=== PATIENT | male | born 1985 | race Caucasian/White ===

== ENCOUNTER 2016-11-16 17:39 | Inpatient (IN) | payer OTHER ==
[~2016-11-16] VITALS: Ht 180.3 cm; Wt 79.0 kg
[2016-11-16] MEDS ORDERED: ASPIRIN 81 MG CHEW PO STA (17:42)
--- NOTE | 2016-11-16 18:06 | DIAGNOSTIC IMAGING REPORT ---
SINGLE VIEW CHEST CLINICAL HISTORY: Weakness. Change in mental status. FINDINGS: An AP, portable, upright chest radiograph is obtained. No prior studies are available for comparison at the time of dictation. Coils project over the right mid chest. The cardiomediastinal silhouette is unremarkable. There are subtle nodular densities projecting over the right mid chest. No airspace consolidation or pleural effusion is identified. No pneumothorax is seen. The bony thorax is grossly intact. IMPRESSION: 1. No acute cardiopulmonary abnormality. 2. Coils project over the right mid chest. Correlation with the patient's medical/surgical history will be required. Electronically signed by: Casey Bey M.D. 11/16/2016 6:04 PM Dictated Date/Time: 11/16/2016 6:03 PM
[2016-11-16 18:16] LABS: BASO % 0.7 %; BASO ABS # 0.07 K/uL (0-0.2); COMPLETE YES; EOS % 1.3 %; HEMATOCRIT 48.6 % (42-52); IG% 0.3 %; LYMPH % 29.6 %; LYMPH ABS # 2.78 K/uL (1.2-3.4); MEAN CELL VOLUME 82.1 fL (80-100); MEAN CORPUSCULAR HEMOGLOBIN 29.7 pg (25-34); MEAN CORPUSCULAR HGB CONC 36.2 g/dl (32-36); MONO % 6.4 %; NEUT % 61.7 %; PLATELET COUNT 269 K/uL (130-400); RED BLOOD COUNT 5.92 M/uL (4.7-6.1); WHITE BLOOD COUNT 9.39 K/uL (4.8-10.8)
[2016-11-16 18:27] LABS: INR 0.9 (0.9-1.1); PARTIAL THROMBOPLASTIN RATIO 1.1
[2016-11-16 18:30] LABS: ALT/SGPT 26 U/L (12-78); AST/SGOT 14 U/L (15-37); BLOOD UREA NITROGEN 11 mg/dl (7-18); BUN/CREATININE RATIO 8.8 (10-20); CALCIUM 8.7 mg/dl (8.5-10.1); CARBON DIOXIDE 24 mmol/L (21-32); CHLORIDE 112 mmol/L (98-107); GLUCOSE 104 mg/dl (70-99); MAGNESIUM 2.3 mg/dl (1.8-2.4); POTASSIUM 3.5 mmol/L (3.5-5.1); SODIUM 144 mmol/L (136-145)
[2016-11-16 18:41] LABS: ALKALINE PHOSPHATASE 77 U/L (45-117); THYROID STIMULATING HORMONE 0.912 uIu/ml (0.300-4.500)
[2016-11-16 18:54] LABS: URINE APPEARANCE CLEAR (CLEAR); URINE BILIRUBIN NEG (NEG); URINE COLOR YELLOW; URINE NITRITE NEG (NEG); URINE SPECIFIC GRAVITY 1.021 (1.000-1.030); UROBILINOGEN NEG (NEG); ZZUR CULT IF INDIC CLEAN CATCH NO
[2016-11-16 18:58] LABS: MANUAL MICROSCOPIC REQUIRED? NO; REVIEW REQ? NO
--- NOTE | 2016-11-16 19:24 | EMERGENCY ROOM VISIT NOTE ---
History Report prepared by Belinda: Lisa Krishnamurthy Under the Supervision of: Dr. Ramiro Bernstein D.O. First contact with patient: 17:42 Chief Complaint: STROKE SYMPTOMS Stated Complaint: MINI ACUTE STROKE,NUMBNESS,MIGRAINE History of Present Illness The patient is a 31 year old male who presents to the Emergency Room with complaints of persistent stroke-like symptoms that started 2 months ago. The patient states that he experienced left-sided numbness several months ago along with left hand weakness. He states that the symptoms resolved on their own after 1-2 hours with the exception of numbness in his left thumb. The patient contacted his PCP for his symptoms and they setup any appointment with Dr. Gonzalez - Neurology. Dr. Gonzalez ordered an outpatient MRI, which the patient had done earlier today. The MRI revealed acute infarcts so Dr. Gonzalez referred him into the ED for further evaluation and inpatient work-up. Source of History: patient Onset: 2 months ago Position: other (left side) Quality: other (stroke-like symptoms) Timing: other (persistent) Associated Symptoms: + weakness (left hand, resolved), + numbness (left- sided, left thumb) Review of Systems See HPI for pertinent positives & negatives. A total of 10 systems reviewed and were otherwise negative. Past Medical & Surgical Medical Problems: (1) Migraines Surgical Problems: (1) History of appendectomy (2) History of lung surgery Family History FH: cancer FH: diabetes mellitus FH: heart disease FH: hypertension FH: lung disease Social History Smoking Status: Former Smoker Alcohol Use: none Marital Status: single Housing Status: lives with family, lives with significant other Occupation Status: employed Current/Historical Medications No Active Prescriptions or Reported Meds Allergies Coded Allergies: Penicillins (Verified Allergy, Unknown, 04/30/16) Physical Exam Vital Signs Date Time Temp Pulse Resp B/P (MAP) Pulse Ox O2 Delivery O2 Flow Rate FiO2 11/16/16 19:24 64 20 125/83 91 Room Air 11/16/16 18:24 67 11/16/16 17:40 36.6 69 18 149/105 90 Room Air Physical Exam VITAL SIGNS: were reviewed as above. GENERAL:Non-toxic in appearance. SKIN: Warm dry and pink. HEAD: Normocephalic and atraumatic. OROPHARYNX: Is clear and moist NECK: Supple without lymphadenopathy or meningismus. LUNGS: clear. HEART: Regular rate and rhythm. ABDOMEN: Soft and nontender. EXTREMITIES: Warm and well perfused. NEUROLOGICALLY: Awake alert and oriented without focal deficit. Cranial nerves 2 -12 are intact. There is no pronator drift. Cerebellar testing is within normal limits. There is no nystagmus. There is no facial droop. Speech is clear. Vision is grossly normal. MUSCULOSKELETAL: Good muscle tone. No evidence of trauma. Medical Decision & Procedures ER Provider Diagnostic Interpretation: Radiology results as stated below per my review and radiologist interpretation: SINGLE VIEW CHEST FINDINGS: An AP, portable, upright chest radiograph is obtained. No prior studies are available for comparison at the time of dictation. Coils project over the right mid chest. The cardiomediastinal silhouette is unremarkable. There are subtle nodular densities projecting over the right mid chest. No airspace consolidation or pleural effusion is identified. No pneumothorax is seen. The bony thorax is grossly intact. IMPRESSION: 1. No acute cardiopulmonary abnormality. 2. Coils project over the right mid chest. Correlation with the patient's medical/surgical history will be required. Electronically signed by: Casey Bey M.D. 11/16/2016 6:04 PM Dictated Date/Time: 11/16/2016 6:03 PM Laboratory Results 11/16/16 18:05 Red Blood Count 5.92, Mean Corpuscular Volume 82.1, Mean Corpuscular Hemoglobin 29.7, Mean Corpuscular Hemoglobin Concent 36.2, Mean Platelet Volume 10.0, Neutrophils (%) (Auto) 61.7, Lymphocytes (%) (Auto) 29.6, Monocytes (%) (Auto) 6.4, Eosinophils (%) (Auto) 1.3, Basophils (%) (Auto) 0.7, Neutrophils # (Auto) 5.79, Lymphocytes # (Auto) 2.78, Monocytes # (Auto) 0.60, Eosinophils # (Auto) 0.12, Basophils # (Auto) 0.07 11/16/16 18:05 Test 11/16/16 18:05 11/16/16 18:40 White Blood Count 9.39 K/uL (4.8-10.8) Red Blood Count 5.92 M/uL (4.7-6.1) Hemoglobin 17.6 g/dL (14.0-18.0) Hematocrit 48.6 % (42-52) Mean Corpuscular Volume 82.1 fL (80-100) Mean Corpuscular Hemoglobin 29.7 pg (25-34) Mean Corpuscular Hemoglobin Concent 36.2 g/dl (32-36) Platelet Count 269 K/uL (130-400) Mean Platelet Volume 10.0 fL (7.4-10.4) Neutrophils (%) (Auto) 61.7 % Lymphocytes (%) (Auto) 29.6 % Monocytes (%) (Auto) 6.4 % Eosinophils (%) (Auto) 1.3 % Basophils (%) (Auto) 0.7 % Neutrophils # (Auto) 5.79 K/uL (1.4-6.5) Lymphocytes # (Auto) 2.78 K/uL (1.2-3.4) Monocytes # (Auto) 0.60 K/uL (0.11-0.59) Eosinophils # (Auto) 0.12 K/uL (0-0.5) Basophils # (Auto) 0.07 K/uL (0-0.2) RDW Standard Deviation 39.2 fL (36.4-46.3) RDW Coefficient of Variation 13.1 % (11.5-14.5) Immature Granulocyte % (Auto) 0.3 % Immature Granulocyte # (Auto) 0.03 K/uL (0.00-0.02) Prothrombin Time 10.0 SECONDS (9.0-12.0) Prothromb Time International Ratio 0.9 (0.9-1.1) Activated Partial Thromboplast Time 27.7 SECONDS (21.0-31.0) Partial Thromboplastin Ratio 1.1 Anion Gap 8.0 mmol/L (3-11) Est Creatinine Clear Calc Drug Dose 86.8 ml/min Estimated GFR () 83.7 Estimated GFR (Non- 72.2 BUN/Creatinine Ratio 8.8 (10-20) Calcium Level 8.7 mg/dl (8.5-10.1) Magnesium Level 2.3 mg/dl (1.8-2.4) Total Bilirubin 0.6 mg/dl (0.2-1) Direct Bilirubin 0.2 mg/dl (0-0.2) Aspartate Amino Transf (AST/SGOT) 14 U/L (15-37) Alanine Aminotransferase (ALT/SGPT) 26 U/L (12-78) Alkaline Phosphatase 77 U/L (45-117) Total Creatine Kinase 140 U/L (39-308) Creatine Kinase MB 1.4 ng/ml (0.5-3.6) Creatine Kinase MB Ratio 1.0 (0-3.0) Troponin I < 0.015 ng/ml (0-0.045) Total Protein 7.4 gm/dl (6.4-8.2) Albumin 4.2 gm/dl (3.4-5.0) Thyroid Stimulating Hormone (TSH) 0.912 uIu/ml (0.300-4.500) Urine Color YELLOW Urine Appearance CLEAR (CLEAR) Urine pH 7.0 (4.5-7.5) Urine Specific [place] 1.021 (1.000-1.030) Urine Protein NEG (NEG) Urine Glucose (UA) NEG (NEG) Urine Ketones NEG (NEG) Urine Occult Blood NEG (NEG) Urine Nitrite NEG (NEG) Urine Bilirubin NEG (NEG) Urine Urobilinogen NEG (NEG) Urine Leukocyte Esterase NEG (NEG) Urine WBC (Auto) 0 /hpf (0-5) Urine RBC (Auto) 0-4 /hpf (0-4) Urine Hyaline Casts (Auto) 0 /lpf (0-5) Urine Epithelial Cells (Auto) 5-10 /lpf (0-5) Urine Bacteria (Auto) NEG (NEG) Laboratory results as stated above per my review. Medications Administered Medications (Trade) Dose Ordered Sig/Ruddy Route Start Time Stop Time Status Last Admin Dose Admin Aspirin (Aspirin Chew) 81 mg NOW STAT PO 11/16/16 17:42 11/16/16 17:44 DC 11/16/16 18:05 81 MG ECG Indication: weakness Rate (beats per minute): 75 Rhythm: normal sinus Findings: no acute ischemic change, no ectopy ED Course 1741: Ordered Aspirin 81 mg PO 1747: Previous medical records were reviewed. The patient was evaluated in room C7. A complete history and physical examination was performed. 1917: Discussed the patient's case with Dr. Erika Adams. The patient will be evaluated for further treatment and disposition. 1924: On reevaluation, the patient is resting comfortably. I discussed the results and findings with him. He verbalized agreement of the treatment plan. The patient will be evaluated for further management and care. Medical Decision Differential includes acute coronary syndrome, myocardial infarction, CVA, TIA, anemia, infection, pneumonia, UTI, pyelonephritis, poor nutrition, dehydration, electrolyte disturbance,hypoglycemia. Medication Reconciliation: I attest that I have personally reviewed the patient' s current medication list. Blood pressure Screening: Patient was found to have an elevated blood pressure and was referred to their primary doctor for recheck and further treatment. Medication Reconciliation: I attest that I have personally reviewed the patient' s current medication list. Blood pressure Screening: Patient was found to have an elevated blood pressure and was referred to their primary doctor for recheck and further treatment. Consults Time Called: 1912 Consulting Physician: Dr. Erika Adams Returned Call: 1917 Discussed the patient's case with Dr. Erika Adams. The patient will be evaluated for further treatment and disposition. Impression Primary Impression: Stroke Scribe Attestation The scribe's documentation has been prepared under my direction and personally reviewed by me in its entirety. I confirm that the note above accurately reflects all work, treatment, procedures, and medical decision making performed by me. Departure Information Dispostion Being Evaluated By Hospitalist Prescriptions No Active Prescriptions or Reported Meds Referrals No Doctor, Assigned (PCP) Patient Instructions My [facility]
[2016-11-16] MEDS ORDERED: POTASSIUM CHLORIDE 10 MEQ TABCR PO STA (19:29)
[2016-11-16] MEDS ORDERED: PHARMACIST DISCHARGE MED REC CONSULT PRN (19:45)
[2016-11-16] MEDS ORDERED: NITROGLYCERIN 0.4 MG SL PER TAB CHARGE SL PRN (19:45)
[2016-11-16] MEDS ORDERED: ACETAMINOPHEN 325 MG TAB PO PRN (19:45)
[2016-11-16] MEDS ORDERED: SODIUM CHLOR 0.45% + 20MEQ KCL 1,000 ML IV ONE (20:30)
[2016-11-16 20:57] VITALS: BP 150/88; PULSE 69; TEMP 36.7; O2SAT 91; Ht 180.3 cm; Wt 79.0 kg
[2016-11-16] MEDS ORDERED: ENOXAPARIN 40 MG/0.4 ML SYR SC SCH (21:00)
[2016-11-16] MEDS ORDERED: MoRPHine SULFATE 4 MG/ML 1 ML CARP\\VIAL IV PRN (21:30)
[2016-11-16] MEDS ORDERED: TRAMADOL HCL 50 MG TAB PO PRN (21:30)
[2016-11-16] MEDS ORDERED: ONDANSETRON INJ 2 MG/ML 2 ML VIAL IV PRN (21:30)
[2016-11-16] MEDS ORDERED: LORAZEPAM 2 MG/ML 1 ML VIAL IV PRN (21:30)
[2016-11-17] VITALS (8 sets, daily range): BP systolic 120–137; BP diastolic 78–90; PULSE 57–84; TEMP 36.4–37; O2SAT 89–94
--- NOTE | 2016-11-17 00:45 | HISTORY & PHYSICAL EXAMINATION ---
DATE OF ADMISSION: 11/16/2016 PRIMARY CARE PHYSICIAN: None. CHIEF COMPLAINT: Abnormal MRI. HISTORY OF PRESENT ILLNESS: History obtained from patient, family, and records. 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 past tobacco abuse. About 2 months ago, patient had left-sided numbness which improved over the next few weeks, residual numbness in left thumb. Migraine attacks, the last month, more frequent, 3-4 times a week, starts with an aura, Patient was seen by [facility] Neurology office about 2 weeks ago. Impression was migraine. MRI combo study requested. Outpatient MRI done today showed a punctate restricted diffusion at the left anterior body of the corpus callosum with minimal associated T2 signal intensity, question coronal T2-weighted images in the region, 3 additional punctate foci of DWI hyperintensity without definite restricted diffusion in bilateral parietal obese, few scattered punctate foci, T2 hyperintensity within the subcortical and deep white matter, bilateral anterior frontal lobes. chronic ischemic changes, small old lacunar infarcts, bilateral cerebral hemisphere, right greater than left. Consider followup MRA. Findings communicated to neurologist publications writer. Patient was sent to the Emergency Room. Given aspirin in the ER. MEDICAL HISTORY: As above. SURGICAL HISTORY: Pulmonary vein procedure during childhood, appendectomy. HOME MEDICATIONS: Include vitamin B2, magnesium and diazepam. ALLERGIES: PENICILLIN. FAMILY HISTORY: heart disease, diabetes, strokes, and hemochromatosis ("family condition that makes people at risk for strokes" as per family). PERSONAL AND SOCIAL HISTORY: Past tobacco abuse. No chronic intake. 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. REVIEW OF SYSTEMS: As per HPI, all other ROS negative. PHYSICAL EXAMINATION: VITAL SIGNS: Blood pressure was noted to be 130/80, pulse 62, respiratory rate 18, O2 sats 98% on room air. GENERAL: Noted to be slightly anxious, no respiratory distress, eating. SKIN: Normal color. HEENT: [place] palpebral conjunctivae. Dry mucosa. NECK: No JVD. Supple. CHEST: Clear to auscultation. HEART: Regular rate and rhythm. ABDOMEN: Soft. EXTREMITIES: No edema, no tenderness NEUROLOGIC: No gross focality. LABORATORY DATA: Hemoglobin was noted to be 17.6, hematocrit 48, white cell count is 9, platelets 269. Sodium 140, potassium 3.5, chloride 110, CO2 of 27, BUN 20, crea 1.3, glucose 100. IMAGING DATA: Chest x-ray no acute cardiopulmonary abnormalities, pulmonary coil projecting in the right mid chest. EKG as per my interpretation, normal sinus rhythm, no ischemia. ASSESSMENT: 1. Subacute cerebrovascular accident old CVA on MRI ro hypercoagulability, family history of hereditary hemochromatosis ro embolic phenomenon 2. hx migraine. 3. congenital pulmonary vessel anomaly sp surgery 4. past tobacco abuse PLAN: PCU, neuro checks tele monitoring ASA for now for secondary stroke prevention. Workup outlined by the neurologist (Dr. Gonzalez) as follows: MRA of the head and neck. MRI of cervical spine to rule out the demyelination plaques (some suggestion from outpx MRI) Hypercoag workup. DVT prophylaxis with Lovenox subQ. Full code. ADDENDUM : Px/family later clarified familial condition associated w/ strokes they were referring to was "HHT" (hereditary hemorrhagic telangiectasia) - not hereditary hemochromatosis. MTDD
[2016-11-17 06:48] LABS: BASO % 0.9 %; BASO ABS # 0.07 K/uL (0-0.2); COMPLETE YES; EOS % 1.4 %; HEMATOCRIT 50.2 % (42-52); IG% 0.2 %; LYMPH % 30.7 %; LYMPH ABS # 2.49 K/uL (1.2-3.4); MEAN CELL VOLUME 83.8 fL (80-100); MEAN CORPUSCULAR HEMOGLOBIN 29.5 pg (25-34); MEAN CORPUSCULAR HGB CONC 35.3 g/dl (32-36); MONO % 8.6 %; NEUT % 58.2 %; PLATELET COUNT 256 K/uL (130-400); RED BLOOD COUNT 5.99 M/uL (4.7-6.1); WHITE BLOOD COUNT 8.11 K/uL (4.8-10.8)
[2016-11-17 07:28] LABS: CHOLESTEROL/HDL RATIO 3.4; FERRITIN 62.2 ng/ml (8.0-388.0)
[2016-11-17] MEDS ORDERED: ASPIRIN 81 MG ECTAB PO SCH (09:00)
[2016-11-17] MEDS ORDERED: SODIUM CHLORIDE 0.45% 1000ML 1,000 ML IV SCH (12:30)
--- NOTE | 2016-11-17 12:58 | Pulmonary Consultation ---
History General Date of Service: Nov 17, 2016. Stated Complaint: Stroke HPI The patient is a 31 year old male who presents to [facility] with complaints of Stroke. The patient's primary care provider is No Doctor, Assigned. 31 YEAR OLD MAN admitted for left sided weakness and numbness. Has always had migraines as a child His oxygen levels used to run low and at age 8, had coil embolization done to his lungs and after that did not have any problems He had another minor stroke when he was age 11: left hand felt numb even then but he did not go to a doctor Used to have nose bleeds as a child but now they have stopped He denies ever having hemoptysis or blood in stools. Historian: patient Onset: last week Complaint Status: persistent Review of Systems Constitutional: reports: other (headaches) Eyes: denies: no symptoms, as stated in HPI, eye pain, tearing, itching, redness, discharge, double vision, visual changes, blurred vision, photophobia, other ENT: reports: other (nose bleeds as a child), denies: no symptoms, as stated in HPI, ear pain, ear discharge, loss of hearing, tinnitus, nasal pain, nasal congestion, rhinorrhea, epistaxis, sore throat, stridor, throat swelling, mouth pain, mouth swelling, dental pain, gum swelling Cardiovascular: denies: no symptoms, as stated in HPI, chest pain, chest pressure, chest tightness, diaphoresis, edema, intermittent claudication, orthopnea, palpitations, syncope, other Respiratory: reports: shortness of breath, cyanosis, SHARMA, hemoptysis (denies hemoptysis in the past), denies: no symptoms, as stated in HPI, cough, orthopnea , stridor, wheezing, sputum production, PND, other Gastrointestinal: denies: no symptoms, as stated in HPI, abdominal pain, constipation, diarrhea, nausea, vomiting, hematemesis, hematochezia, hemorrhoids , anorexia, appetite changes, stool changes, flatulence, belching, food intolerance, jaundice, other Genitourinary - Male: denies: no symptoms, as stated in HPI, dysuria, hematuria , hesitancy, impotence, itching, penile discharge, rash, urinary frequency, urinary incontinence, urinary retention, urinary urgency, other Musculoskeletal: denies: no symptoms, as stated in HPI, arthralgias, neck pain , back pain, joint pain, joint swelling, deformity, myalgias, muscle spasms, other Integumentary: denies: no symptoms, as stated in HPI, rash, redness, warmth, itching, dryness, lesions, lumps, change in color, change in hair/nails, other Neurologic: denies: no symptoms, as stated in HPI, headache, dizziness, general weakness, focal weakness, numbness, tingling, paresthesia, pre-existing deficit, tremors, tics, vertigo, seizure, lethargy, memory loss, other Psychiatric: denies: no symptoms, as stated in HPI, anxiety, depression, suicidal ideation, homicidal ideation, visual hallucinations, auditory hallucinations, mood changes, alcohol abuse, drug abuse, other Endocrine: denies: no symptoms, as stated in HPI, cold intolerance, heat intolerance, hair changes, goiter, polydipsia, polyuria, skin changes, other Hematologic / Lymphatic: denies: no symptoms, as stated in HPI, abnormal clotting, adenopathy, anemia, easy bleeding, easy bruising, gums bleeding, petechiae, other Allergic / Immunologic: denies: no symptoms, as stated in HPI, eczema, environmental allergies, frequent infections, hives, multiple food allergies, seasonal allergies, pet sensitivities, poor healing, prolonged convalescence, other Past Medical History Past Medical History: h/o mignaines TIA h/o HHT Past Surgical History: coil embolization of pulmonary AVM's at age 8 Family History FH: cancer FH: diabetes mellitus FH: heart disease FH: hypertension FH: lung disease positive for HHt Social History Hx Tobacco Use In Past Year?: No Smoking Status: Former Smoker Marital status: single Occupational Status: employed History of MDRO History of MDRO: No Allergies Coded Allergies: Penicillins (Verified Allergy, Unknown, 04/30/16) Current Medications Reported Home Medications Medications Dose Route/Sig Max Daily Dose Days Date Category No Active Prescriptions or Reported Medications Rx Physical Physical Exam Vital Signs: Date Time Temp Pulse Resp B/P (MAP) Pulse Ox O2 Delivery O2 Flow Rate FiO2 11/17/16 11:37 36.7 80 18 125/86 (99) 90 Nasal Cannula 2.0 11/17/16 08:00 93 Nasal Cannula 2.0 11/17/16 07:51 37.0 60 17 137/78 (97) 90 Nasal Cannula 2.0 11/17/16 04:00 Room Air 11/17/16 03:48 36.4 84 18 120/86 (97) 90 Room Air 11/17/16 00:09 36.5 58 18 122/82 (95) 91 Room Air 11/17/16 00:00 Room Air 11/16/16 20:57 36.7 69 18 150/88 91 Room Air 11/16/16 20:35 65 16 147/90 93 11/16/16 19:24 64 20 125/83 91 Room Air 11/16/16 18:24 67 11/16/16 17:40 36.6 69 18 149/105 90 Room Air General Appearance: WELL-APPEARING, NO APPARENT DISTRESS Head: NORMOCEPHALIC, ATRAUMATIC Eyes: PERRLA, NO DISCHARGE, EOMI, SCLERAE NORMAL, CONJUNCTIVAE NORMAL ENT: NORMAL EAR EXAM, NORMAL NASAL EXAM, NORMAL MOUTH EXAM, NORMAL THROAT EXAM , NORMAL DENTAL EXAM Neck: NORMAL RANGE OF MOTION, NO TENDERNESS, TRACHEA MIDLINE, NO STRIDOR, NO THYROMEGALY, NO LYMPHADENOPATHY, NO NUCHAL RIGIDITY Respiratory: BREATH SOUNDS NORMAL, CLEAR TO AUSCULTATION, CLEAR TO PERCUSSION, NO RESPIRATORY DISTRESS Cardiovasular: REGULAR RATE/RHYTHM, NORMAL S1S2, NO M/G/R, NO MURMUR, NO GALLOP , NO RUB, NO JVD, NORMAL PERIPHERAL PULSES Abdomen: NON TENDER, NORMAL BOWEL SOUNDS, NO REBOUND, NO MASSES, NO GUARDING, NO ORGANOMEGALY Back: NORMAL INSPECTION Upper Extremities: NO EDEMA, NO DEFORMITY Neuro: ALERT, ORIENTED x 3, NORMAL MOTOR EXAM Psychiatric: NORMAL AFFECT Diagnostics Labs Results Past 24 Hours Test 11/16/16 18:05 11/16/16 18:40 11/16/16 20:22 11/17/16 06:37 Range/Units White Blood Count 9.39 8.11 4.8-10.8 K/uL Red Blood Count 5.92 5.99 4.7-6.1 M/uL Hemoglobin 17.6 17.7 14.0-18.0 g/dL Hematocrit 48.6 50.2 42-52 % Mean Corpuscular Volume 82.1 83.8 80-100 fL Mean Corpuscular Hemoglobin 29.7 29.5 25-34 pg Mean Corpuscular Hemoglobin Concent 36.2 35.3 32-36 g/dl Platelet Count 269 256 130-400 K/uL Mean Platelet Volume 10.0 10.0 7.4-10.4 fL Neutrophils (%) (Auto) 61.7 58.2 % Lymphocytes (%) (Auto) 29.6 30.7 % Monocytes (%) (Auto) 6.4 8.6 % Eosinophils (%) (Auto) 1.3 1.4 % Basophils (%) (Auto) 0.7 0.9 % Neutrophils # (Auto) 5.79 4.72 1.4-6.5 K/uL Lymphocytes # (Auto) 2.78 2.49 1.2-3.4 K/uL Monocytes # (Auto) 0.60 0.70 0.11-0.59 K/uL Eosinophils # (Auto) 0.12 0.11 0-0.5 K/uL Basophils # (Auto) 0.07 0.07 0-0.2 K/uL RDW Standard Deviation 39.2 40.4 36.4-46.3 fL RDW Coefficient of Variation 13.1 13.4 11.5-14.5 % Immature Granulocyte % (Auto) 0.3 0.2 % Immature Granulocyte # (Auto) 0.03 0.02 0.00-0.02 K/uL Prothrombin Time 10.0 9.0-12.0 SECONDS Prothromb Time International Ratio 0.9 0.9-1.1 Activated Partial Thromboplast Time 27.7 21.0-31.0 SECONDS Partial Thromboplastin Ratio 1.1 Sodium Level 144 136-145 mmol/L Potassium Level 3.5 3.5-5.1 mmol/L Chloride Level 112 98-107 mmol/L Carbon Dioxide Level 24 21-32 mmol/L Anion Gap 8.0 3-11 mmol/L Blood Urea Nitrogen 11 7-18 mg/dl Creatinine 1.30 0.60-1.40 mg/dl Est Creatinine Clear Calc Drug Dose 86.8 ml/min Estimated GFR () 83.7 Estimated GFR (Non- 72.2 BUN/Creatinine Ratio 8.8 10-20 Random Glucose 104 70-99 mg/dl Calcium Level 8.7 8.5-10.1 mg/dl Magnesium Level 2.3 1.8-2.4 mg/dl Total Bilirubin 0.6 0.2-1 mg/dl Direct Bilirubin 0.2 0-0.2 mg/dl Aspartate Amino Transf (AST/SGOT) 14 15-37 U/L Alanine Aminotransferase (ALT/SGPT) 26 12-78 U/L Alkaline Phosphatase 77 45-117 U/L Total Creatine Kinase 140 39-308 U/L Creatine Kinase MB 1.4 0.5-3.6 ng/ml Creatine Kinase MB Ratio 1.0 0-3.0 Troponin I < 0.015 0-0.045 ng/ml Total Protein 7.4 6.4-8.2 gm/dl Albumin 4.2 3.4-5.0 gm/dl Thyroid Stimulating Hormone (TSH) 0.912 0.300-4.500 uIu/ml Urine Color YELLOW Urine Appearance CLEAR CLEAR Urine pH 7.0 4.5-7.5 Urine Specific [place] 1.021 1.000-1.030 Urine Protein NEG NEG Urine Glucose (UA) NEG NEG Urine Ketones NEG NEG Urine Occult Blood NEG NEG Urine Nitrite NEG NEG Urine Bilirubin NEG NEG Urine Urobilinogen NEG NEG Urine Leukocyte Esterase NEG NEG Urine WBC (Auto) 0 0-5 /hpf Urine RBC (Auto) 0-4 0-4 /hpf Urine Hyaline Casts (Auto) 0 0-5 /lpf Urine Epithelial Cells (Auto) 5-10 0-5 /lpf Urine Bacteria (Auto) NEG NEG Iron Level 108 35-175 mcg/dl Total Iron Binding Capacity 330 250-450 mcg/dl Transferrin 258 200-360 mg/dl Transferrin % Saturation 30 20-50 % Ferritin 62.2 8.0-388.0 ng/ml Triglycerides Level 87 0-150 mg/dl Cholesterol Level 130 0-200 mg/dl HDL Cholesterol 38 mg/dl LDL Cholesterol, Calculated 75 mg/dl VLDL Cholesterol, Calculated 17 mg/dl Cholesterol/HDL Ratio 3.4 Impression Assessment and Plan (1) HHT (hereditary hemorrhagic telangiectasia) Assessment & Plan: obtain ECHO to look for Pulmonary hypertension record pulse ox on exertion (2) Stroke Status: Acute Assessment & Plan: TIA due to embolization from the pulmonary AVM's ? obtain CTA chest : if new AVM's are present then will need IR or vascula to perform coil embolization again also obtain echo with bubble study to r/o any intracardiac shunt (3) Elevated serum creatinine gentle hydration especially as will be getting iv contrast for the cta
[2016-11-17] MEDS ORDERED: OPTIRAY 320 IV PRN (13:00)
--- NOTE | 2016-11-17 13:57 | DIAGNOSTIC IMAGING REPORT ---
CT ANGIOGRAM OF THE CHEST CLINICAL HISTORY: Pulmonary AVM. Stroke. COMPARISON STUDY: Chest x-ray dated 11/16/2016. TECHNIQUE: Following the IV administration of 119 cc of Optiray 320, CT angiogram of the chest was performed from the thoracic inlet to the upper abdomen. Images are reviewed in the axial, sagittal, and coronal planes. 3-D MIPS images are created and assessed. IV contrast was administered without complication. CT DOSE: 443.13 mGy.cm FINDINGS: Thyroid: Imaged portions of the thyroid gland are normal in size and attenuation. Thoracic aorta: The thoracic aorta is normal in caliber and demonstrates standard 3-vessel arch anatomy. No dissection is seen. Pulmonary vasculature: The pulmonary trunk is normal in caliber. There are no filling defects identified in the main, lobar, or segmental pulmonary branches to indicate pulmonary embolus. There is a large pulmonary AVM identified at the left lung base on axial image #312. A large pulmonary AVM is seen at the right upper lobe on axial image #103. A small pulmonary AVM is seen in the left lower lobe on image #169, and a pulmonary AVM is seen in the lingula on image #284 second small AVM in the right upper lobe as seen on image #141. Numerous embolization coils are seen in the right lower quadrant pulmonary vessels, likely representing treated AVMs. Heart: The heart is normal in size and configuration, and without pericardial effusion. Lungs and pleural spaces: No airspace consolidation or pleural effusion is identified. The trachea and central airways are clear. See above under pulmonary vasculature for discussion of pulmonary AVMs. Mediastinum: There is no mediastinal lymphadenopathy. Susana: Clear. Axillae: There is no axillary lymphadenopathy. Upper abdomen: Partially visualized upper abdominal viscera is within normal limits. Skeletal structures: No lytic or blastic bony lesions are seen. IMPRESSION: 1. 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 The largest is seen at the left lung base. 2. There are embolization coils within additional AVMs seen in the right lower lung. 3. There is no airspace consolidation or pleural effusion. 4. There is no evidence of pulmonary embolus in the main, lobar, or segmental pulmonary arteries. 5. The thoracic aorta is normal in appearance. Electronically signed by: Casey Bey M.D. 11/17/2016 1:55 PM Dictated Date/Time: 11/17/2016 1:51 PM
--- NOTE | 2016-11-17 14:30 | PROGRESS NOTE ---
DATE: 11/17/2016 REASON FOR CONSULTATION: Possible stroke. HISTORY OF PRESENT ILLNESS: Mr. Underwood is a 31-year-old right-handed male who was admitted as an outpatient. He had seen Destiny Sprague and Dr. Naylor in the office several weeks ago for an episode of protracted numbness in the left arm that had not accompanied migraine. The radiologist called me with the results and there was an acute left pericallosal infarction which of course did not explain his symptoms several weeks ago and evidence of multiple prior small, but cortically based cerebellar infarct as well as some hemispheric infarcts, all small. The pericallosal lesion was nonenhancing. I contacted the patient and sent him into the hospital. He has an interesting history. He has had migraines for many years and saw Dr. Ceron at least in 2001. At that time he had an abnormal CT, I believe there was an abnormality in the right caudate head, but an MRI apparently showed no significant abnormality. He continued to have migraines about once a week and typically they occur which are preceded by scintillating visual phenomenon and sometimes by unilateral perioral numbness lasting less than an hour followed by a global or retroorbital headache with nausea, rare vomiting, none recently; photophobia and phonophobia. He several weeks ago was seated watching TV, the left arm, face and trunk had an intense numbness and there was some associated weakness of the left hand and left leg. He did not get a headache. He went to sleep for several hours and he awakened with residual numbness in the radial aspect of his left thumb which has persisted. He has had the aforementioned headaches, at times he has had sparkling visual phenomenon that lasts for days after headache. He has also had another event where he had numbness in his left arm followed by headache, but the numbness lasted 1-2 weeks. He has had some intermittent double vision without a headache lasting 10-15 minutes in the past. No history of vertigo, no history of optic neuritis, trigeminal neuralgia, Lhermitte's phenomenon, incontinence, imbalance. None of these neurologic events ever occurred with Valsalva maneuver. There has been no chest pain, palpitations, hemoptysis or shortness of breath. The patient had a pulmonary vascular section at age 8. He has had frequent nosebleeds in the past. There is a family history of HHT, his grandmother sounds as if she had an intracranial hemorrhage, may have had an aneurysm and his grandmother also had a gastrectomy and lung surgery, a paternal uncle same side of family and paternal cousin are said to have MS. MEDICAL HISTORY: He has had a skin condition that he and his mother do not recall the name, he has multiple warts and there is a risk for skin cancer. He was as a youngster followed by [facility] but has not seen dermatology. No history of DVT, PE. No history of cancer. Classic migraine since youth. SURGICAL HISTORY: Pulmonary vascular procedure in youth and appendectomy. REVIEW OF SYSTEMS: As above, additionally the patient has had a 10 pound weight loss related to stressors. MEDICATIONS AT HOME: B2, magnesium. He was prescribed Imitrex but did not take it for the headache. REmotely he was on propanolol briefly for migraine which he did not tolerate. ALLERGIES: PENICILLIN. FAMILY HISTORY: In addition to the aforementioned family history of HHT, mother has hyperlipidemia, migraine. Father HHT, PE, diabetes, hyperlipidemia. Brothers with migraine. He has 1 child that is well. MRI as an outpatient as mentioned above. The patient's chest x-ray showed no acute abnormality, nodular densities projecting over the right midchest and coiled project over the right midchest. The patient's EKG sinus rhythm. LABORATORIES: White count, H and H and platelet count are normal. PT 10, PTT 27.7. Chemistry profile, notable for a random glucose of 104. Transaminases normal. TSH normal. Urinalysis notable for 5-10 epithelial cells, immunology, hypercoagulable state workup is pending. PHYSICAL EXAMINATION: The patient is awake and alert, in no distress. There is normal speech and language and his affect is appropriate. There are no carotid bruits. No vertebral bruits. No heart murmurs appreciable. Lungs are clear. No pulmonary bruits are appreciated. Radial pulses are intact. Posterior tibial pulses are intact. The feet are mildly bluish, I do not see any periungual vascular malformations. I do not see any vascular malformations in his fingertips. Pupils are equal, round, reactive to light. No afferent pupillary defect, normal metzger, motility, facial sensation, facial symmetry. Speech and language are normal. Tongue is midline. Face is symmetric. Motor: Full strength, no drift. Normal rapid alternating movements. Symmetric reflexes. Downgoing toes. Ojhgkk-sl-rklr and indr-rl-nbku are normal. Sensation decreased to light touch left radial aspect of his thumb, otherwise normal. Goiilq-la-bser and bgda-zo-fgar normal. Gait and tandem are normal. IMPRESSION: This patient has a history of classic migraines, with some of the migraines he has had relatively protracted neurologic symptoms. His most recent event occurred with some persistent numbness occurred without a headache and is not explained by the MRI of the brain which shows an acute infarction in the left corpus callosum as well as other prior primarily cortically based cerebellar infarctions as well as left parietal. 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 PLAN: 1. MRA has been ordered. May need a CTA to clarify further whether there is any cranial AVMs or aneurysms. 2. Pulmonary consultation regarding screening for pulmonary AVMs, of which I am highly suspicious. 3. Given the patient has had multiple presumed emboli, antiplatelet therapy with aspirin at present, will need to monitor for epistaxis or hemoptysis. 4. Will screen for venous thrombosis in the upper and lower extremities, may need pelvic imaging. 5. Hypercoagulable state workup. 6. Although MS is in the differential and there is "family history" of MS, I am suspicious that family history of multiple sclerosis on the paternal side may be incorrect and it is possible that those members have HHT with emboli. We will follow with you. ELVA
[2016-11-17] MEDS ORDERED: PERFLUTREN LIPID MICROSPHERE (DEFINITY) IV ONE (16:17)
--- NOTE | 2016-11-17 17:16 | Discharge Instructions ---
Discharge Instructions Date of Service Nov 17, 2016. Admission Reason for Admission: Stroke Discharge Discharge Diagnosis / Problem: HEREDITARY TELAGIECTASIA/ACUTE CVA /PULMONARY AVM Discharge Goals Goal(s): Diagnostic testing Activity Recommendations Activity Limitations: as noted below ( TOLERATED ) . Instructions / Follow-Up Instructions / Follow-Up PATIENT BEING TRANSFERRED TO [facility] FOR IR GUIDED COIL EMBOLIZATION FOR MULTIPLE PULMONARY AVM'S NEUROLOGY EVALUATION FOR ACUTE CVA Current Hospital Diet Patient's current hospital diet: AHA Diet (Heart Healthy) Discharge Diet Recommended Diet: AHA Diet (Heart Healthy) Pending Studies Studies pending at discharge: no Laboratory Results Lipid Panel Test 11/17/16 06:37 Range/Units Triglycerides Level 87 0-150 mg/dl Cholesterol Level 130 0-200 mg/dl HDL Cholesterol 38 mg/dl Cholesterol/HDL Ratio 3.4 LDL Cholesterol, Calculated 75 mg/dl Medical Emergencies . Who to Call and When: Medical Emergencies: If at any time you feel your situation is an emergency, please call 911 immediately. . Non-Emergent Contact Non-Emergency issues call your: Hospital Doctor, Neurologist . . "Provider Documentation" section prepared by Paulina Beltrán. . VTE Core Measure Inpt VTE Proph given/why not?: Jefry Arreola, SCD's
[2016-11-17] MEDS ORDERED: ULT50X PO (17:37)
[2016-11-17] MEDS ORDERED: ASPEC81 PO (17:37)
--- NOTE | 2016-11-17 18:29 | DIAGNOSTIC IMAGING REPORT ---
CERVICAL SPINE MRI WITH AND WITHOUT CONTRAST HISTORY: Stroke. check for demyelinating plaques as per dr ca TECHNIQUE: Multiplanar multisequence MRI of the cervical spine was performed both before and after the use of intravenous contrast. COMPARISON STUDY: None. FINDINGS: No fracture or subluxation. Disc desiccation throughout the majority of the cervical spine. Disc spaces are relatively preserved. Cervical spinal cord is normal in course, caliber, and signal intensity. No abnormal enhancement. Vertebral soft tissues and the C1-C2 interval are intact. There are few tiny old lacunar infarcts seen within the cerebellar hemispheres. C2-C3: No significant central canal or neural foraminal narrowing. C3-C4: Broad-based posterior disc osteophyte complex without significant central canal or left-sided neural foraminal narrowing. Mild right-sided neural foraminal narrowing. C4-C5: No significant central canal or neural foraminal narrowing. C5-C6: Tiny right paracentral focal disc protrusion without significant central canal or neural foraminal narrowing. C6-C7: Small broad-based posterior disc bulge without central canal or neural foraminal narrowing. C7-T1: No significant central canal or neural foraminal narrowing. IMPRESSION: 1. Normal cervical spinal cord. 2. Mild degenerative changes as described above. 3. A few old tiny lacunar infarcts within the cerebellar hemispheres. Electronically signed by: Jay Bueno M.D. 11/17/2016 6:27 PM Dictated Date/Time: 11/17/2016 6:22 PM
[2016-11-17] MEDS ORDERED: GADAVIST IV PRN (18:30)
--- NOTE | 2016-11-17 18:31 | DIAGNOSTIC IMAGING REPORT ---
Brain MRA HISTORY: stroke TECHNIQUE: 3-D [id number] MRA of the brain was performed without contrast. COMPARISON STUDY: None. FINDINGS: Visualized intracranial internal carotid arteries, distal left vertebral artery, and basilar artery are widely patent. There is no significant stenosis, occlusion, or aneurysm seen within the bilateral ACAs, MCAs, or oil well cable tool driller. Distal right vertebral artery is hypoplastic and terminates in the right posterior inferior cerebellar artery. This is considered to be a normal variant. Multiple old lacunar infarcts seen within the cerebellar hemispheres. IMPRESSION: No significant stenosis, occlusion, or aneurysm within the [place] of [place]. Electronically signed by: Jay Bueno M.D. 11/17/2016 6:13 PM Dictated Date/Time: 11/17/2016 6:11 PM
--- NOTE | 2016-11-17 18:33 | DIAGNOSTIC IMAGING REPORT ---
NECK MRA HISTORY: stroke TECHNIQUE: [id number] and gadolinium-enhanced MRA of the neck was performed both before and after the intravenous administration of contrast. All measurements were calculated based on NASCET criteria. COMPARISON STUDY: None. FINDINGS: The aortic arch and proximal great vessels are widely patent. There is no significant stenosis, occlusion, or dissection identified within the bilateral common carotid, internal carotid, or vertebral arteries. Hypoplastic right vertebral artery IMPRESSION: No significant stenosis, occlusion, or dissection identified within the carotid or vertebral arteries. Electronically signed by: Jay Bueno M.D. 11/17/2016 6:32 PM Dictated Date/Time: 11/17/2016 6:30 PM
--- NOTE | 2016-11-17 19:31 | DIAGNOSTIC IMAGING REPORT ---
BILATERAL UPPER AND LOWER EXTREMITY VENOUS DOPPLER HISTORY: stroke, poss pulm avm COMPARISON STUDY: None. FINDINGS: There is normal compressibility, flow, and augmentation within the bilateral upper and lower extremity deep venous systems. IMPRESSION: No DVT within the right or left upper or lower extremity. Electronically signed by: Jay Bueno M.D. 11/17/2016 7:29 PM Dictated Date/Time: 11/17/2016 7:28 PM
--- NOTE | 2016-11-17 19:53 | Discharge Summary ---
Discharge Summary Date of Service Nov 17, 2016. Discharge Summary Admission Date: Nov 16, 2016 at 19:39 Discharge Date: Nov 17, 2016 Discharge Disposition: Acute care facility ([facility] ) Principal Diagnosis: HEREDITARY TELANGIECTASIA/ACUTE CVA /PULMONARY AVM Procedures: CT ANGIOGRAM OF CHEST : MPRESSION: 1. 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 The largest is seen at the left lung base. 2. There are embolization coils within additional AVMs seen in the right lower lung. 3. There is no airspace consolidation or pleural effusion. 4. There is no evidence of pulmonary embolus in the main, lobar, or segmental pulmonary arteries. 5. The thoracic aorta is normal in appearance. DOPPLER ULTRASOUND OF BOTH UPPER AND LOWER EXTREMITY : No evidence of DVT MRI/MRA OF BRAIN : IMPRESSION: No significant stenosis, occlusion, or aneurysm within the [place] of [place]. No significant stenosis, occlusion, or aneurysm of carotid and vertebral arteries MRA OF CERVICAL SPINE: IMPRESSION: 1. Normal cervical spinal cord. 2. Mild degenerative changes as described above. 3. A few old tiny lacunar infarcts within the cerebellar hemispheres. Consultations: NEUROLOGY PULMONOLOGY Pending Studies/Follow-Up: PATIENT BEING TRANSFERRED TO [facility] FOR IR GUIDED COIL EMBOLIZATION FOR MULTIPLE PULMONARY AVM'S NEUROLOGY EVALUATION FOR ACUTE CVA Medication Reconciliation New Medications: Aspirin (Aspirin EC Low Dose) 81 Mg Ectab 81 MG PO QAM for 30 Days Tramadol HCl (Tramadol HCl) 50 Mg Tab 25 MG PO Q6H PRN for Pain for 30 Days, #60 TAB Admission Information HPI (per Admitting provider): DATE OF ADMISSION: 11/16/2016 PRIMARY CARE PHYSICIAN: None. CHIEF COMPLAINT: Abnormal MRI. HISTORY OF PRESENT ILLNESS: History obtained from patient, family, and records. 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 past tobacco abuse. About 2 months ago, patient had left-sided numbness which improved over the next few weeks, residual numbness in left thumb. Migraine attacks, the last month, more frequent, 3-4 times a week, starts with an aura, Patient was seen by [facility] Neurology office about 2 weeks ago. Impression was migraine. MRI combo study requested. Outpatient MRI done today showed a punctate restricted diffusion at the left anterior body of the corpus callosum with minimal associated T2 signal intensity, question coronal T2-weighted images in the region, 3 additional punctate foci of DWI hyperintensity without definite restricted diffusion in bilateral parietal obese, few scattered punctate foci, T2 hyperintensity within the subcortical and deep white matter, bilateral anterior frontal lobes. chronic ischemic changes, small old lacunar infarcts, bilateral cerebral hemisphere, right greater than left. Consider followup MRA. Findings communicated to neurologist backend python developer. Patient was sent to the Emergency Room. Given aspirin in the ER. Physical Exam (per Admitting): REVIEW OF SYSTEMS: As per HPI, all other ROS negative. PHYSICAL EXAMINATION: VITAL SIGNS: Blood pressure was noted to be 130/80, pulse 62, respiratory rate 18, O2 sats 98% on room air. GENERAL: Noted to be slightly anxious, no respiratory distress, eating. SKIN: Normal color. HEENT: [place] palpebral conjunctivae. Dry mucosa. NECK: No JVD. Supple. CHEST: Clear to auscultation. HEART: Regular rate and rhythm. ABDOMEN: Soft. EXTREMITIES: No edema, no tenderness NEUROLOGIC: No gross focality. Hospital Course this is 31 yo Male sent from Neurology office for concern for Acute CVA pt had complain intermittent numbness of left arm and fingers MRI [facility] brain done at [facility] showed : punctate restricted diffusion at the left anterior body of the corpus callosum , 3 additional punctate foci bilateral parietal lobe , T2 hyperintensity within the subcortical and deep white matter, bilateral anterior frontal lobes.chronic ischemic changes, small old lacunar infarcts, bilateral cerebral hemisphere, right greater than left. -Acute CVA with multiple foci suggestive of embolic phenomenon pt was directed to [facility] ER -Neurology was involved, concern for possible HHT ( Hereditary hemorrhagic Telangiectasis ) -pt had pulmonary AVM embolization done at age 8 has multiple family members with similar symptoms MRI /MRA of brain -was negative of intracranial AVM , Aneurysms MRI of Cervical spine -shows old lacunar infract in cerebellum Upper and lower ext Doppler was negative for DVT Pulmonology eval requested CTA angiogram of chest ordered -shows multiple AVM's in bilat lung lobe with evidence of coil embolization on rt lower lobe Discussed with environmental remediation engineer neurology and Pulmonology will need IR guided embolization of the pulmonary AVM' given [facility] does not have IR service , also pt be [facility] -with Neurology , IR , pulmonology support will need detail cardiac work up as well D/w Pt and his mother Lung AVM embolization in his childhood was done in [facility] agreeable for the transfer pt is hemodynamically stable no overt neurological deficit stable to be transferred via [facility] [place] [facility] [place] accepting physician Dr Tang Total time spent on discharge = 40 mins This includes examination of the patient, discharge planning, medication reconciliation, and communication with other providers. Discharge Instructions Discharge Instructions Date of Service Nov 17, 2016. Admission Reason for Admission: Stroke Discharge Discharge Diagnosis / Problem: HEREDITARY TELANGIECTASIA/ACUTE CVA /PULMONARY AVM Discharge Goals Goal(s): Diagnostic testing Activity Recommendations Activity Limitations: as noted below ( TOLERATED ) . Instructions / Follow-Up Instructions / Follow-Up PATIENT BEING TRANSFERRED TO [facility] FOR IR GUIDED COIL EMBOLIZATION FOR MULTIPLE PULMONARY AVM'S NEUROLOGY EVALUATION FOR ACUTE CVA Current Hospital Diet Patient's current hospital diet: AHA Diet (Heart Healthy) Discharge Diet Recommended Diet: AHA Diet (Heart Healthy) Pending Studies Studies pending at discharge: no Laboratory Results Lipid Panel Test 11/17/16 06:37 Range/Units Triglycerides Level 87 0-150 mg/dl Cholesterol Level 130 0-200 mg/dl HDL Cholesterol 38 mg/dl Cholesterol/HDL Ratio 3.4 LDL Cholesterol, Calculated 75 mg/dl Medical Emergencies . Who to Call and When: Medical Emergencies: If at any time you feel your situation is an emergency, please call 911 immediately. . Non-Emergent Contact Non-Emergency issues call your: Hospital Doctor, Neurologist . . "Provider Documentation" section prepared by Paulina Beltrán. . VTE Core Measure Inpt VTE Proph given/why not?: Jefry Arreola, SCD's Additional Copies To Destiny Gonzalez M.D.
[2016-11-18 00:27] VITALS: BP 115/70; PULSE 62; TEMP 36.4; O2SAT 93
--- NOTE | 2016-11-18 08:45 | ECHOCARDIOGRAM REPORT ---
*NOTICE TO RECEIVING REPUBLICAN AGENCY This information is strictly Confidential and protected under [place] law. [place] law prohibits you from making any further disclosure of this information unless further disclosure is expressly permitted by the written consent of the person to whom it pertains or is authorized by law. A general authorization for the release of medical or other information is not sufficient for this purpose. Hospital accepts no responsibility if the information is made available to any other person, INCLUDING THE PATIENT. Interpretation Summary * Name: ADAM WING Study Date: 11/17/2016 03:36 PM BP: 120/86 mmHg * Patient Location: C.2T\S\E217\S\1 HR: 57 * : 1985 (M/d/yyyy) Gender: Male Height: 71 in * Age: 31 yrs Ethnicity: CA Weight: 171 lb * Ordering Physician: Philippe James * Referring Physician: Self, Referred * Performed By: Philippe Fields RDCS * * Reason For Study: Stroke * BSA: 2.0 m2 * -- Conclusions -- * The presence of an ASD or PFO cannot be excuded on this study. * Agitated saline contrast administaiton demonstrates significant right to left shunt. * Patient has history of pulmonary ateriovenous malformations which could explain the findings but intercardiac shunt from an interatrial communication cannot be excluded. * The suspicion for interatrial communication is high, consider CLAUDE. * The left ventricle is normal in size. * The left ventricular wall motion is normal. * The LV Ejection Fraction = 55-60%. * The right ventricle is normal in size and function. * The left atrial size is normal. * Right atrial size is normal. * There is no evidence of pulmonary hypertension. Procedure Details * A complete two-dimensional transthoracic echocardiogram was performed (2D, M-mode, Doppler and color flow Doppler). * The study was technically difficult. * The study was technically difficult, but visualization was adequate with the administration of Definity ultrasound contrast. * A contrast injection of Definity was performed to improve assessment of LV function. * Contrast was injected into an intravenous site in the left arm. * One vial of Definity ultrasound contrast was diluted in normal saline to a total volume of 10 ml. A total of '3' ml of solution was administered during imaging. * Lot # [id number] of Definity utilized for procedure. * Expiration date [id number]. * The attending nurse who injected the contrast agent was MAURICIO Huntley. Left Ventricle * The left ventricle is normal in size. * There is normal left ventricular wall thickness. * Left ventricular systolic function is normal. * Ejection Fraction = 55-60%. * The left ventricular wall motion is normal. Right Ventricle * The right ventricle is normal in size and function. * The right ventricular systolic function is normal as assessed by tricuspid annular plane systolic excursion (TAPSE) (normal >1.5 cm). Atria * The left atrial size is normal. * Right atrial size is normal. * The presence of an ASD or PFO cannot be excuded on this study. Agitated saline contrast administaiton demonstrates significant right to left shunt. Patient has history of pulmonary ateriovenous malformations which could explain the findings but intercardiac shunt from an interatrial communication cannot be excluded. The suspicion for interatrial communication is high, consider CLAUDE. Mitral Valve * The mitral valve is normal. * There is no mitral valve stenosis. * Significant mitral regurgitation is absent. Tricuspid Valve * The tricuspid valve is normal. * There is no tricuspid stenosis. * Significant tricuspid regurgitation is absent. Aortic Valve * The aortic valve is trileaflet. * Aortic stenosis is absent. * There is no significant aortic regurgitation. Pulmonic Valve * The pulmonary valve is not well seen, but the Doppler examination is normal without significant regurgitation or stenosis. Great Vessels * The aortic root and proximal ascending aorta are normal sized. Pericardium/Pleural * There is no pericardial effusion. Great Vessels * Normal inferior vena cava diameter and respiratory variation suggests normal central venous pressure. * Normal inferior vena cava size and collapsability with sniff indicates a normal right atrial pressure of 3 mmHg Left Ventricular Diastolic Function * The LV diastolic function is normal. MMode 2D Measurements and Calculations IVSd 0.92 cm IVSs 1.3 cm LVIDd 4.7 cm LVIDs 2.8 cm LVPWd 0.91 cm LVPWs 1.5 cm IVS/LVPW 1.0 FS 40.4 % EDV(Teich) 103.8 ml ESV(Teich) 30.0 ml EF(Teich) 71.1 % EDV(cubed) 105.7 ml ESV(cubed) 22.4 ml EF(cubed) 78.8 % % IVS thick 36.4 % % LVPW thick 69.5 % LV mass(C)d 147.3 grams LV mass(C)dI 74.7 grams/m\S\2 LV mass(C)s 129.4 grams LV mass(C)sI 65.6 grams/m\S\2 SV(Teich) 73.8 ml SI(Teich) 37.4 ml/m\S\2 SV(cubed) 83.3 ml SI(cubed) 42.2 ml/m\S\2 EPSS 0.83 cm Ao root diam 3.4 cm Ao root area 9.2 cm\S\2 ACS 2.2 cm LA dimension 3.1 cm asc Aorta Diam 3.3 cm LA/Ao 0.90 LVOT diam 1.9 cm LVOT area 2.9 cm\S\2 LVOT area(traced) 2.8 cm\S\2 LVAd ap4 26.1 cm\S\2 LVLd ap4 7.5 cm EDV(MOD-sp4) 74.0 ml LVAs ap4 14.1 cm\S\2 LVLs ap4 6.0 cm ESV(MOD-sp4) 30.0 ml EF(MOD-sp4) 59.5 % LVAd ap2 29.2 cm\S\2 LVLd ap2 7.7 cm EDV(MOD-sp2) 93.0 ml LVAs ap2 14.6 cm\S\2 LVLs ap2 5.9 cm ESV(MOD-sp2) 32.0 ml EF(MOD-sp2) 65.6 % SV(MOD-sp4) 44.0 ml SI(MOD-sp4) 22.3 ml/m\S\2 SV(MOD-sp2) 61.0 ml SI(MOD-sp2) 30.9 ml/m\S\2 Doppler Measurements and Calculations MV E max zoe 79.0 cm/sec MV A max zoe 39.5 cm/sec MV E/A 2.0 MV dec time 0.18 sec Ao V2 max 113.3 cm/sec Ao max PG 5.1 mmHg Ao max PG (full) 2.7 mmHg MURIEL(V,A) 2.0 cm\S\2 MURIEL(V,D) 2.0 cm\S\2 LV V1 max PG 2.5 mmHg LV V1 max 78.5 cm/sec PA V2 max 92.3 cm/sec PA max PG 3.4 mmHg
[2016-11-21 13:50] LABS: ANTITHROMBINIII ACTIVITY** 137 % activity (80-120); B2 GLYCOPROTEIN IGA <9 SAU (<=20); B2 GLYCOPROTEIN IGG <9 SGU (<=20); B2 GLYCOPROTEIN IGM <9 SMU (<=20); LUPUS ANTICOAGULANT** TC36573X Negative (Negative); PROTEIN C ACTIVITY** TC 1777X 176 % (70-180); PROTEIN S ACT(FUNCT)**1779X 145 % (70-150)
== END 2016-11-18 01:11 | disposition short-term general hospital (02) | DRG 299 ==
LOC: C.EDB 17:39 → C.2T 19:39 → ENRESERV 20:04
PROVIDERS: ADMIT Hospitalist; ATTEND Hospitalist
DX: I78.0 Hereditary hemorrhagic telangiectasia (principal); Q25.72 Congenital pulmonary arteriovenous malformation; F41.9 Anxiety disorder, unspecified; G43.909 Migraine, unspecified, not intractable, without status migrainosus; Z79.899 Other long term (current) drug therapy; Z87.891 Personal history of nicotine dependence; Z90.49 Acquired absence of other specified parts of digestive tract; Z82.49 Family history of ischemic heart disease and other diseases of the circulatory system; Z83.3 Family history of diabetes mellitus; Z88.0 Allergy status to penicillin; Z82.3 Family history of stroke; Z80.9 Family history of malignant neoplasm, unspecified; Z83.6 Family history of other diseases of the respiratory system

== ENCOUNTER 2017-10-05 16:41 | Emergency (ER) | payer OTHER ==
[~2017-10-05] VITALS: Ht 177.8 cm; Wt 78.6 kg
[~2017-10-05 16:41] MED LIST: ASPI-320 PO; ULT50X PO
[2017-10-05 16:45] VITALS: TEMP 36.6; Ht 177.8 cm; Wt 78.6 kg
[2017-10-05] MEDS ORDERED: SODIUM CHLORIDE 0.9% 1000ML 1,000 ML IV STA (17:07)
[2017-10-05] MEDS ORDERED: MoRPHine SULFATE 4 MG/ML 1 ML CARP\\VIAL IV STA ×2 (17:07→19:12)
[2017-10-05] MEDS ORDERED: OPTIRAY 320 IV PRN (17:15)
[2017-10-05 17:24] VITALS: O2SAT 96
[2017-10-05] MEDS ORDERED: RANI150T85 PO (17:30)
[2017-10-05] MEDS ORDERED: MAGN250T8 PO (17:30)
[2017-10-05] MEDS ORDERED: RIBO50TA5 PO (17:30)
--- NOTE | 2017-10-05 17:36 | EMERGENCY ROOM VISIT NOTE ---
ED Visit Note First contact with patient: 16:58 CHIEF COMPLAINT: Left-sided chest pain, shortness of breath HISTORY OF PRESENTING ILLNESS: This is a 32-year-old male with past medical history significant for hereditary neuralgic telangiectasia who presents to the emergency department with complaint of left-sided chest pain that started 2 days ago. The patient states that he had surgery on 09/30 at [facility] in [place] by interventional radiology to have several AVMs embolized. He states that they went through a vein in the right side of his neck to do the procedure and he does not have any surgical incisions. He states initially that he did not have any significant pain after the surgery. He began having a dull aching pain in the left side of his chest 2 days ago, this is been getting progressively worse and today the pain became severe and sharp around 3 PM. He states that the pain has been constant, worse with some movements and with taking a deep breath, unrelieved with Tylenol, currently rates as 11/23. He denies any cough or hemoptysis. He denies any fevers or chills. He denies any dizziness, palpitations, or syncope. He denies any abdominal pain, back pain, nausea or vomiting, diarrhea, urinary symptoms, unusual rash. REVIEW OF SYSTEMS: A complete 10 point review of systems was reviewed with the patient with pertinent positives and negatives as per history of present illness. All else were negative. PAST MEDICAL HISTORY: HHT with multiple pulmonary AVMs, stroke, migraines, GERD SOCIAL HISTORY: Lives at home. He denies tobacco use. ALLERGIES: Reviewed in chart. PHYSICAL EXAM: CONSTITUTIONAL: Pleasant and cooperative. No acute distress, but appears uncomfortable and in significant pain. Mildly dehydrated, but otherwise well appearing and well nourished. HEENT: Normocephalic, atraumatic. Pupils equal, round and reactive to light, EOMI. TMs normal. Pharynx normal. Tacky mucous membranes. NECK: Supple, full active range of motion without discomfort. No cervical adenopathy. No ecchymosis or swelling of the right side of the neck at the surgical site. RESPIRATORY: Clear to auscultation bilaterally with no wheezing, crackles, rhonchi or stridor. Equal expansion bilaterally. CHEST WALL: Patient is actively guarding his left side. Tenderness to palpation of the left anterior and lateral chest wall. No crepitus, swelling, or ecchymosis noted. CARDIOVASCULAR: Regular rate and rhythm with no murmurs, rubs or gallops. Normal peripheral perfusion. No edema. GASTROINTESTINAL: Soft, nontender, nondistended. No rebound tenderness or guarding. No palpable masses or HSM. Bowel sounds present in all quadrants. No CVA tenderness. MUSCULOSKELETAL: Full range of motion of all joints without discomfort. INTEGUMENTARY: No rash or other significant dermatologic conditions noted. NEUROLOGIC: Alert and oriented X 4 with normal affect. Normal strength and sensation in all 4 extremities. No focal neurologic deficits noted. Normal speech. Normal gait observed. ED COURSE AND MEDICAL DECISION MAKING: CC: Patient presenting with complaint of left-sided chest pain and shortness of breath DIFFERENTIAL DIAGNOSIS: Includes, but not limited to pulmonary embolism, pulmonary infarct, postop complication, acute coronary syndrome, aortic dissection, pneumothorax, pericarditis, myocarditis, endocarditis, anxiety, musculoskeletal pain, GERD, costochondritis, pneumonia, among others. INTERPRETATION OF LABS: No leukocytosis, no anemia, no significant electrolyte abnormalities, normal renal function, normal liver enzymes and lipase. Negative troponin. Coagulation factors within normal limits. UA consistent with dehydration, otherwise negative. IMAGING: CHEST ONE VIEW PORTABLE CLINICAL HISTORY: left chest pain, SOB, eval PTX COMPARISON STUDY: 11/16/2016 FINDINGS: Progressive placement of embolization coils in the right midlung as well as left mid and left lower lung region. No focal infiltrate. Diaphragms are smooth. IMPRESSION: 1. Progressive number of embolization coils throughout both hemithoraces. The lungs are clear. No acute infiltrate. Electronically signed by: Brando Sanches M.D. 10/05/2017 5:49 PM ----- (CHEST FOR PE) ANGIO WITH CT DOSE: 366.85 mGy.cm HISTORY: AVM pulmonary embolus TECHNIQUE: Multiaxial CT images of the chest were performed following the intravenous administration of contrast to evaluate the pulmonary arteries. Maximal intensity projection images were also obtained. A dose lowering technique was utilized adhering to the principles of ALARA. COMPARISON STUDY: 11/17/2016 FINDINGS: Thoracic aorta is normal in course and caliber. Several mid mediastinal nodes are stable. There has been progressive placement of embolization coils within the right midlung as well as interval placement of coils within the left midlung and left base. There appears to been a good treatment response to the vascular coils placed at the left base. Coils placed in the left lingular region show partial treatment response with a nonspecific small infiltrative process distal to the coil placement. This may represent small focal infiltrate versus atypical infarct. There has been progressive treatment of the vascular malformations of the right midlung. There continues to be opacification of ectatic vessels distal to the coil placement indicating a partial treatment response. Lungs otherwise appear clear. There are no filling defects in the main pulmonary arterial vasculature. IMPRESSION: 1. Difficult study to interpret due to the lack of interval scans. 2. Bilateral placement of additional embolization coils in the right mid and right upper lobe region as well as left midlung and left base. 3. Several of these show partial treatment response with several distal residual ectatic vessels. 4. Small parenchymal infiltrate versus atypical infarct distal to the left lingular coils positioned anterior aspect left base. 5. No evidence for acute pulmonary embolus. 6. Lungs otherwise appear clear. EKG: Shows normal sinus rhythm with a rate of 81 bpm, no acute ischemic changes noted, no significant changes noted when compared to previous EKG from 11/17/2016 by my interpretation. MEDICATION RECONCILIATION: I attest that I have personally reviewed the patient 's current medication list. INITIAL VITAL SIGNS REVIEW: I reviewed the patient's initial vital signs and interpret them as follows: T: Afebrile; BP: Hypertensive; HR: Within normal limits; RR: Within normal limits; Pulse Ox: Within normal limits on room air. Blood pressure screening: The patient was found to have an elevated blood pressure, which was felt to be situational. SUMMARY: Patient was evaluated at bedside, history and physical exam performed. Patient is alert and oriented, in no acute distress, but does appear to be in significant pain, resting in the stretcher and holding his left side. Lungs are clear throughout with no diminished or abnormal lung sounds. EKG reviewed at bedside, normal sinus rhythm with no acute ischemic changes. Orders were placed at bedside for labs, UA, IV fluids for hydration, IV morphine for pain, portable chest x-ray to rule out pneumothorax, and CTA of the chest to evaluate for PE or other abnormality. Patient discussed with Dr. Madrigal, who agrees with my assessment and plan. I spoke on the phone with Dr. Gonsales, interventional radiology at [facility], who informed me that the patient had several coils placed in his left lower lobe to block the AVM shunts. He said it is highly unlikely that these coils would move, but states that this procedure can cause inflammatory phlebitis and inflammatory pleural infiltrates, which could cause his pain. He agrees with our plans to perform CT of the chest. Labs and imaging reviewed as above. No evidence of PE. I spoke on the phone again with Dr. Gonsales, and discussed the CTA chest findings. He feels this is ambulatory service representative of infiltrates, which is not uncommon in this type of procedure. He recommended the patient be provided with pain medication and he will arrange for a sooner follow-up visit with the patient in clinic. Patient reassessed multiple times throughout ED stay, he appears much more comfortable and states that his pain is improved with the morphine and the oxycodone. Patient was updated on all results and plan for discharge, he was encouraged to keep all of his follow-up appointments. Rx for oxycodone sent to the pharmacy and he was educated regarding its use. He was also provided with a take-home pack of oxycodone. Patient was also given strict return precautions should his symptoms worsen, he verbalized understanding. Patient was discharged home in stable condition and ambulatory. Current/Historical Medications Scheduled Magnesium Oxide (Mg Supplement (Magnesium), 1 TAB PO DAILY Ranitidine (Zantac), 150 MG PO BID Riboflavin (Vitamin B-2), 50 MG PO DAILY Scheduled PRN Oxycodone Ir (Roxicodone Ir), 1 TAB PO Q4H PRN for Severe Pain Allergies Coded Allergies: Penicillins (Verified Allergy, Unknown, 04/30/16) Vital Signs Date Time Temp Pulse Resp B/P (MAP) Pulse Ox O2 Delivery O2 Flow Rate FiO2 10/05/17 21:01 103 18 132/97 97 10/05/17 18:50 92 16 138/95 98 Room Air 10/05/17 18:12 102 18 138/99 97 Room Air 10/05/17 17:33 92 10/05/17 17:24 96 Room Air 10/05/17 17:24 96 Room Air 10/05/17 16:45 36.6 89 20 157/92 96 Room Air Laboratory Results 10/05/17 17:10 Red Blood Count 5.93, Mean Corpuscular Volume 80.9, Mean Corpuscular Hemoglobin 28.8, Mean Corpuscular Hemoglobin Concent 35.6, Mean Platelet Volume 9.5, Neutrophils (%) (Auto) 67.4, Lymphocytes (%) (Auto) 20.6, Monocytes (%) (Auto) 10.0, Eosinophils (%) (Auto) 1.3, Basophils (%) (Auto) 0.2, Neutrophils # (Auto ) 7.20, Lymphocytes # (Auto) 2.20, Monocytes # (Auto) 1.07, Eosinophils # (Auto ) 0.14, Basophils # (Auto) 0.02 10/05/17 17:10 Test 10/05/17 17:10 10/05/17 17:34 10/05/17 19:00 White Blood Count 10.68 K/uL (4.8-10.8) Red Blood Count 5.93 M/uL (4.7-6.1) Hemoglobin 17.1 g/dL (14.0-18.0) Hematocrit 48.0 % (42-52) Mean Corpuscular Volume 80.9 fL (80-100) Mean Corpuscular Hemoglobin 28.8 pg (25-34) Mean Corpuscular Hemoglobin Concent 35.6 g/dl (32-36) Platelet Count 251 K/uL (130-400) Mean Platelet Volume 9.5 fL (7.4-10.4) Neutrophils (%) (Auto) 67.4 % Lymphocytes (%) (Auto) 20.6 % Monocytes (%) (Auto) 10.0 % Eosinophils (%) (Auto) 1.3 % Basophils (%) (Auto) 0.2 % Neutrophils # (Auto) 7.20 K/uL (1.4-6.5) Lymphocytes # (Auto) 2.20 K/uL (1.2-3.4) Monocytes # (Auto) 1.07 K/uL (0.11-0.59) Eosinophils # (Auto) 0.14 K/uL (0-0.5) Basophils # (Auto) 0.02 K/uL (0-0.2) RDW Standard Deviation 39.1 fL (36.4-46.3) RDW Coefficient of Variation 13.2 % (11.5-14.5) Immature Granulocyte % (Auto) 0.5 % Immature Granulocyte # (Auto) 0.05 K/uL (0.00-0.02) Prothrombin Time 9.4 SECONDS (9.0-12.0) Prothromb Time International Ratio 0.9 (0.9-1.1) Activated Partial Thromboplast Time 30.6 SECONDS (21.0-31.0) Partial Thromboplastin Ratio 1.2 Est Creatinine Clear Calc Drug Dose 89.7 ml/min Estimated GFR () 90.6 Estimated GFR (Non- 78.2 BUN/Creatinine Ratio 8.7 (10-20) Calcium Level 9.4 mg/dl (8.5-10.1) Total Bilirubin 0.6 mg/dl (0.2-1) Aspartate Amino Transf (AST/SGOT) 12 U/L (15-37) Alanine Aminotransferase (ALT/SGPT) 27 U/L (12-78) Alkaline Phosphatase 105 U/L (45-117) Troponin I < 0.015 ng/ml (0-0.045) Total Protein 8.5 gm/dl (6.4-8.2) Albumin 4.2 gm/dl (3.4-5.0) Globulin 4.3 gm/dl (2.5-4.0) Albumin/Globulin Ratio 1.0 (0.9-2) Lipase 83 U/L (73-393) Bedside Hemoglobin 17.0 g/dl (14.0-18.0) Bedside Hematocrit 50 % (42-52) Bedside Sodium 142 mEq/L (135-144) Bedside Potassium 3.8 mEq/L (3.3-5.0) Bedside Chloride 104 mEq/L (101-112) Bedside Total CO2 24 mEq/l (24-31) Anion Gap 18.0 mmol/L (16-25) Bedside Blood Urea Nitrogen 9 mg/dl (7-18) Bedside Creatinine 1.1 mg/dl (0.6-1.3) Bedside Glucose (other) 89 mg/dl (70-99) Bedside Ionized Calcium ([place]) 1.15 mmol/l (1.12-1.32) Urine Color YELLOW Urine Appearance CLEAR (CLEAR) Urine pH 8.0 (4.5-7.5) Urine Specific [place] > 1.045 (1.000-1.030) Urine Protein NEG (NEG) Urine Glucose (UA) NEG (NEG) Urine Ketones NEG (NEG) Urine Occult Blood NEG (NEG) Urine Nitrite NEG (NEG) Urine Bilirubin NEG (NEG) Urine Urobilinogen NEG (NEG) Urine Leukocyte Esterase NEG (NEG) Medications Administered Medications (Trade) Dose Ordered Sig/Ruddy Route Start Time Stop Time Status Last Admin Dose Admin Morphine Sulfate (MoRPHine SULFATE INJ) 4 mg NOW STAT IV 10/05/17 17:07 10/05/17 17:11 DC 10/05/17 17:26 4 MG Sodium Chloride 1,000 ml @ 999 mls/hr Q1H1M STAT IV 10/05/17 17:07 10/05/17 18:07 DC 10/05/17 17:27 999 MLS/HR Morphine Sulfate (MoRPHine SULFATE INJ) 4 mg NOW STAT IV 10/05/17 19:12 10/05/17 19:14 DC 10/05/17 19:41 4 MG Oxycodone HCl (Roxicodone Immediate Rel 5MG Home Pack) 1 homepack UD ONCE PO 10/05/17 19:15 10/05/17 19:16 DC 10/05/17 20:55 1 HOMEPACK Oxycodone HCl (Roxicodone Immediate Rel Tab) 5 mg NOW STAT PO 10/05/17 20:19 10/05/17 20:20 DC 10/05/17 20:56 5 MG Departure Information Impression Primary Impression: Pulmonary infiltrate Additional Impression: Left sided chest pain Dispostion Home / Self-Care Condition GOOD Prescriptions Oxycodone Ir (Roxicodone Ir) 5 Mg Tab 1 TAB PO Q4H Y for Severe Pain for 5 Days, #30 TAB Prov: Leidy Fernandez, FRATERNITY ADVISER 10/05/17 Referrals Myrna Urias DO (PCP) Patient Instructions ED Chest Pain Pleurisy, [facility] Additional Instructions You have been treated in the Emergency Department for your chest pain. Laboratory results and imaging studies have ruled out any emergent causes for your symptoms which would warrant admission or surgery. You have been prescribed oxycodone to be taken as needed for SEVERE pain. This is a narcotic, do not drive, operate machinery, or drink alcohol while you are taking this medication. Narcotics may cause constipation with prolonged use, drink plenty of fluids and take an [id number] stool softener to help avoid this. For pain control, you can use the following [id number] medicines (if >12 yo): - Regular strength (325mg/tab) Tylenol (acetaminophen) 2 tabs every 4-6 hours as needed. Do not exceed 10 tablets in a 24 hour period. Avoid taking more than 3000 mg of Tylenol per day. This includes any other sources of acetaminophen you may take on a regular basis. Drink plenty of fluids to stay well hydrated. Please follow-up with your Primary Care Provider in the next few days for recheck of your symptoms. Return to the emergency department for severe worsening pain, worsening shortness of breath or inability to catch your breath, coughing up blood, severe nausea/vomiting or vomiting blood, fevers > 101.5, severe dizziness or passing out, or any other concerns. Work Instructions Return To Work: 2 days Problem Qualifiers
[2017-10-05 17:38] LABS: BASO % 0.2 %; BASO ABS # 0.02 K/uL (0-0.2); EOS % 1.3 %; EOS ABS # 0.14 K/uL (0-0.5); HEMOGLOBIN 17.1 g/dL (14.0-18.0); IG# 0.05 K/uL (0.00-0.02); LYMPH % 20.6 %; MEAN CELL VOLUME 80.9 fL (80-100); MEAN CORPUSCULAR HEMOGLOBIN 28.8 pg (25-34); MEAN CORPUSCULAR HGB CONC 35.6 g/dl (32-36); MEAN PLATELET VOLUME 9.5 fL (7.4-10.4); MONO ABS # 1.07 K/uL (0.11-0.59); NEUT % 67.4 %; PLATELET COUNT 251 K/uL (130-400); RED CELL DISTRIBUTION WIDTH CV 13.2 % (11.5-14.5); RED CELL DISTRIBUTION WIDTH SD 39.1 fL (36.4-46.3); WHITE BLOOD COUNT 10.68 K/uL (4.8-10.8)
[2017-10-05 17:47] LABS: INR 0.9 (0.9-1.1); PTT PATIENT 30.6 SECONDS (21.0-31.0)
[2017-10-05 17:48] LABS: ISTAT CREATININE 1.1 mg/dl (0.6-1.3); ISTAT IONIZED CALCIUM 1.15 mmol/l (1.12-1.32); ISTAT POTASSIUM 3.8 mEq/L (3.3-5.0)
--- NOTE | 2017-10-05 17:50 | DIAGNOSTIC IMAGING REPORT ---
CHEST ONE VIEW PORTABLE CLINICAL HISTORY: left chest pain, SOB, eval PTX COMPARISON STUDY: 11/16/2016 FINDINGS: Progressive placement of embolization coils in the right midlung as well as left mid and left lower lung region. No focal infiltrate. Diaphragms are smooth. IMPRESSION: 1. Progressive number of embolization coils throughout both hemithoraces. The lungs are clear. No acute infiltrate. The above report was generated using voice recognition software. It may contain grammatical, syntax or spelling errors. Electronically signed by: Brando Sanches M.D. 10/05/2017 5:49 PM Dictated Date/Time: 10/05/2017 5:47 PM
[2017-10-05 17:58] LABS: ALBUMIN 4.2 gm/dl (3.4-5.0); ALT/SGPT 27 U/L (12-78); AST/SGOT 12 U/L (15-37); BLOOD UREA NITROGEN 10 mg/dl (7-18); CALCIUM 9.4 mg/dl (8.5-10.1); CARBON DIOXIDE 25 mmol/L (21-32); CREATININE 1.21 mg/dl (0.60-1.40); GLUCOSE 86 mg/dl (70-99); LIPASE 83 U/L (73-393); POTASSIUM 3.7 mmol/L (3.5-5.1); SODIUM 138 mmol/L (136-145)
[2017-10-05 18:03] LABS: ALKALINE PHOSPHATASE 105 U/L (45-117); TOTAL PROTEIN 8.5 gm/dl (6.4-8.2)
--- NOTE | 2017-10-05 18:25 | DIAGNOSTIC IMAGING REPORT ---
(CHEST FOR PE) ANGIO WITH CT DOSE: 366.85 mGy.cm HISTORY: AVM pulmonary embolus TECHNIQUE: Multiaxial CT images of the chest were performed following the intravenous administration of contrast to evaluate the pulmonary arteries. Maximal intensity projection images were also obtained. A dose lowering technique was utilized adhering to the principles of ALARA. COMPARISON STUDY: 11/17/2016 FINDINGS: Thoracic aorta is normal in course and caliber. Several mid mediastinal nodes are stable. There has been progressive placement of embolization coils within the right midlung as well as interval placement of coils within the left midlung and left base. There appears to been a good treatment response to the vascular coils placed at the left base. Coils placed in the left lingular region show partial treatment response with a nonspecific small infiltrative process distal to the coil placement. This may represent small focal infiltrate versus atypical infarct. There has been progressive treatment of the vascular malformations of the right midlung. There continues to be opacification of ectatic vessels distal to the coil placement indicating a partial treatment response. Lungs otherwise appear clear. There are no filling defects in the main pulmonary arterial vasculature. IMPRESSION: 1. Difficult study to interpret due to the lack of interval scans. 2. Bilateral placement of additional embolization coils in the right mid and right upper lobe region as well as left midlung and left base. 3. Several of these show partial treatment response with several distal residual ectatic vessels. 4. Small parenchymal infiltrate versus atypical infarct distal to the left lingular coils positioned anterior aspect left base. 5. No evidence for acute pulmonary embolus. 6. Lungs otherwise appear clear. The above report was generated using voice recognition software. It may contain grammatical, syntax or spelling errors. Electronically signed by: Brando Sanches M.D. 10/05/2017 6:24 PM Dictated Date/Time: 10/05/2017 6:13 PM
[2017-10-05] MEDS ORDERED: OXYCODONE IR HOME PACK PO ONE (19:15)
[2017-10-05] MEDS ORDERED: OXYC1TAB3 PO (20:14)
[2017-10-05] MEDS ORDERED: OXYCODONE HCL IR 5 MG TAB (IMMEDIATE RELEASE) PO STA (20:19)
[2017-10-05 21:01] VITALS: BP 132/97; PULSE 103; O2SAT 97
== END 2017-10-05 21:02 | disposition home or self-care (01) ==
LOC: C.EDB 16:42 → C.EDC 21:02
DX: R91.8 Other nonspecific abnormal finding of lung field (principal); R07.9 Chest pain, unspecified; I78.0 Hereditary hemorrhagic telangiectasia; Q25.72 Congenital pulmonary arteriovenous malformation; Z86.73 Personal history of transient ischemic attack (TIA), and cerebral infarction without residual deficits; K21.9 Gastro-esophageal reflux disease without esophagitis; E86.0 Dehydration; Z79.899 Other long term (current) drug therapy; Z88.0 Allergy status to penicillin